=== PATIENT | female | born 1980 | race Caucasian/White ===

== ENCOUNTER 2019-09-05 12:10 | Emergency (ER) | payer OTHER ==
[~2019-09-05] VITALS: Ht 170.2 cm; Wt 73.9 kg
[~2019-09-05 12:10] MED LIST: COL100 PO; DUL5 PO; ELA25 PO; FLUVOXAMINE PO; KEP500 PO; LEVALBUTEROL INH; SUMATRIPTAN PO; TYLENOL PO; VIS50 PO
[2019-09-05 12:14] VITALS: Ht 170.2 cm; Wt 73.9 kg
[2019-09-05 13:29] VITALS: BP 120/80
== END 2019-09-05 13:29 | disposition home or self-care (01) ==
LOC: ED 12:10
DX: S51.811A Laceration without foreign body of right forearm, initial encounter (principal); J45.909 Unspecified asthma, uncomplicated; E03.9 Hypothyroidism, unspecified; W26.8XXA Contact with other sharp object(s), not elsewhere classified, initial encounter; Y93.89 Activity, other specified; Y92.89 Other specified places as the place of occurrence of the external cause; Y99.8 Other external cause status
CPT/HCPCS: J2001